=== PATIENT | female | born 2000 | race Caucasian/White ===

== ENCOUNTER 2020-07-29 04:04 | Outpatient (CLI) | payer MEDICAID, SELFPAY ==
--- NOTE | 2020-07-29 14:00 | NS.NUTBLAN_ITS ---
Xiomy was referred for medical nutrition therapy for counseling for anorexia. 67 inches, 121 lbs, BMI 20. Highest weight 5 years ago at 155 lbs as freshman in high school. Started restricting kiana year in high schooll after her friend committed suicide. Has been dx with depression around that time. Current weight has been stable > 6 months. No menses, with nexplanon. Is planning on having blood draw to r/o TSH disorder, check CBC and micronutrient levels. Meds include vyvanse 40 mg, lamictal 150 mg qd. Reports fear of gaining weight, focuses on muscle definition, fear of being self centered, depression, anxiety. She reports being tired most days, having cold feet and hands, difficulty sleeping and developing yanique hair on face. She also reports teeth starting to chip and having diarrhea and stomach aches when she eats. 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 Diet recall indicates restricts during day. Drinks 8 ounces tea and has small dinner. Average caloric intake about 500 calories, 25 g protein, 30 g fat with about 16 ounces fluid. 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 We talked for a long time and discussed the how and why eating disorders develop as a coping mechanism. She reports that her family has addiction issues but that she never drank or smoked. Her drug was restricting in order to reduce emotional pain. Xiomy agreed to start a meal plan that increases caloric intake and fluid intake. Goal for next 2 weeks is for her to eat a protein bar for breakfast, protein shake at lunch a long with a well balanced dinner. Goal is for 5-6 cups of tea or beverages daily. She agrees to take a multivitamin. I did not weigh Xiomy today. follow up visit: 08/14/20 at 12:30 recommend referral for counseling weekly and follow up visit with psychiatrist for medication evaluation.
== END 2020-07-29 04:05 | disposition home or self-care (01) ==
LOC: DS 04:04
PROVIDERS: PCP Nurse Practitioner Family; Visit Provider Dietitian, Registered
DX: F50.82 Avoidant/restrictive food intake disorder (principal); R63.0 Anorexia; Z71.3 Dietary counseling and surveillance
CPT/HCPCS: 97802

== ENCOUNTER 2020-08-12 03:50 | Outpatient (CLI) | payer MEDICAID, SELFPAY ==
--- NOTE | 2020-08-12 12:30 | NS.NUTBLAN_ITS ---
Xiomy returns for Medical Nutrition Therapy for counseling for anorexia/restrictive avoidant eating disorder. Did not weigh Xiomy today, she appears same weight. 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 Xiomy had a hard time making eye contact and it was difficult for her to list what she had eaten in last couple of days. She reports poor sleep. Stated that she started drinking [employer] Instant Breakfast drinks two months ago, and then later said she started with them 2 days ago. Xiomy shared that she has had more digestive issues since our last meeting, reports nausea, stomach cramping, diarrhea on daily basis. Xiomy reports she has not pursued getting a counselor. Continues to take 40 mg vyvance and 150 mg lamictal dailly. Session today focused on importance of following a meal plan and journaling symptoms and feelings. We also discussed importance of doing blood work and following up with PCP. She agreed to drink 2 instant breakfast drinks daily with whole milk and have a typical dinner with family at night. She will start a food/symptom journal. She also agrees to make appt for lab draw and to follow up with her PCP. follow up meeting scheduled for 08/28/20 at 1 pm.
== END 2020-08-12 03:51 | disposition home or self-care (01) ==
LOC: DS 03:50
PROVIDERS: PCP Nurse Practitioner Family; Visit Provider Dietitian, Registered
DX: F50.82 Avoidant/restrictive food intake disorder (principal); R63.0 Anorexia; Z71.3 Dietary counseling and surveillance
CPT/HCPCS: 97803

== ENCOUNTER 2020-08-21 03:29 | Outpatient (CLI) | payer MEDICAID, SELFPAY ==
[2020-08-21 11:09] LABS: HCT 42.5 % (36.0-46.0); HGB 14.2 g/dL (11.2-15.7); MCH 31.3 pg (27.0-33.0); MCHC 33.4 % (32.0-36.0); MCV 93.8 fL (80-95); MPV 9.6 fL (8.0-11.0); Platelet Count 239 10^3/uL (130-400); RBC 4.53 10^6/uL (3.93-5.22); RDW 11.8 % (11.7-14.6); RDW-SD 40.7 fL; WBC 5.69 10^3/uL (4.4-10.8)
[2020-08-21 11:11] LABS: ESR 5 mm//hr (0-20)
[2020-08-21 12:24] LABS: Iron 114 ug/dL (50-170); Total Iron Binding Capacity 326 ug/dL (250-450); Transferrin Sat 35 % (15-50)
[2020-08-21 12:36] LABS: Vitamin D 25 Total 35.2 ng/mL (30-100)
[2020-08-21 12:38] LABS: ALT 24 U/L (14-59); AST 16 U/L (15-37); Albumin 4.2 g/dL (3.4-5.0); Alkaline Phosphatase 60 U/L (46-116); Anion Gap 11.1 mmol/L (3-11); BUN 21 mg/dL (7-18); Bilirubin, Total 0.4 mg/dL (0.2-1.0); CO2 25.9 mmol/L (21.0-32.0); CREATININE 0.9 mg/dL (0.55-1.02); Calcium 9.6 mg/dL (8.5-10.1); Chloride 104 mmol/L (98-107); Glucose 87 mg/dL (74-106); Potassium 4.1 mmol/L (3.5-5.1); Sodium 141 mmol/L (136-145); TSH (W/Ref FT4) 2.51 uIU/mL (0.52-4.13); Total Protein 7.7 g/dL (6.4-8.2); Vitamin B12 877 pg/mL (193-986)
[2020-08-21 12:47] LABS: C-Reactive Protein < 0.05 mg/dL (0.0-0.3)
[2020-08-21 21:05] LABS: Rheumatoid Factor <8.6 IU/mL (<12.0)
[2020-08-22 09:14] LABS: Cyclic Citrullinated Peptide <2.5 U/mL (<5.0)
[2020-08-22 15:00] LABS: ANA Interpretation Negative (Negative)
== END 2020-08-21 03:30 | disposition home or self-care (01) ==
PROVIDERS: PCP Nurse Practitioner Family; Visit Provider Nurse Practitioner Family
DX: N91.2 Amenorrhea, unspecified (principal); R51.9 Headache, unspecified; M25.59 Pain in other specified joint; F41.8 Other specified anxiety disorders; R53.83 Other fatigue; R45.89 Other symptoms and signs involving emotional state; Z79.899 Other long term (current) drug therapy; Z00.00 Encounter for general adult medical examination without abnormal findings
CPT/HCPCS: 36415; 80053; 82306; 85027; 85652; 86200; 82607; 83540; 83550; 84443; 86038; 86140; 86431

== ENCOUNTER 2020-08-28 02:29 | Outpatient (CLI) | payer MEDICAID, SELFPAY ==
--- NOTE | 2020-08-28 13:00 | NS.NUTBLAN_ITS ---
Xiomy returns for medical nutrition therapy for disordered eating, food avoidant with anorexic tendencies. No weight taken today as triggered by scale. Xiomy reports measuring her waist and hips a couple times per week and continues to have body dysmorphia, fear of weight gain, disgust and nausea after eating, She reports pain, bloating after meals, has joint pain, sleeping difficulty, very low energy level. Labs recently drawn and mostly unremarkable. Dx with IBS, anxiety, depression and PTSD. Xiomy brought in her food record today and has been tracking her calories and foods on her phone. Overall, is eating 2149-6294 kcal daily- has incorporated protein shakes daily and MVI and eating 300-500 kcal per meal. [place] on convenience foods evident. Xiomy is fearful that she has been bingeing, however, reassured her that current eating pattern is not considered a binge (tends to be > 1000 kcal per sitting). Encouraged Xiomy to continue to food journal and meet nutrient and fluid needs. At this time, doubtful that lack of calories is cause for fatigue. Xiomy reports following a gluten free diet a couple of years ago- stopped after 60 days. Discussed that celiac dx takes following a strict gluten free diet for > 3 months- usually 6 months. May be prudent to recheck Celiac panel again. Encouraged Xiomy to start with therapy- she will contact [facility] to schedule. She reports she will be more comfortable to talk to a female therapist. Fatigue, pain may be related to her depression. Plan: continue meal planning and meeting nutrient and fluid needs make appt with counselor, consider meeting with psychiatrist At next blood draw- check Celiac panel Referral to platen press feeder may also be helpful. Consider checking for tick born illnesses such as Lymes Dx in view of fatigue, joint pain.
== END 2020-08-28 02:30 | disposition home or self-care (01) ==
LOC: DS 02:29
PROVIDERS: PCP Nurse Practitioner Family; Visit Provider Dietitian, Registered
DX: F50.82 Avoidant/restrictive food intake disorder (principal); R63.0 Anorexia; R53.83 Other fatigue; Z71.3 Dietary counseling and surveillance
CPT/HCPCS: 97803

== ENCOUNTER 2021-04-28 14:31 | Outpatient (CLI) | payer MEDICAID, SELFPAY ==
--- NOTE | 2021-04-28 14:15 | DI.RAD_ITS ---
Exam(s) XR SHOULDER RT COMPLETE 2+V EXAM: XR SHOULDER RT COMPLETE 2+V CLINICAL HISTORY: RIGHT SHOULDER PAIN TECHNIQUE: COMPARISON: CR XR SHOULDER LT COMPLETE 2+V from 04/28/2021 FINDINGS: Two views were obtained. No bony or soft tissue abnormality is seen. IMPRESSION: RADIATION DOSE DELIVERED: Total DLP
--- NOTE | 2021-04-28 14:15 | DI.RAD_ITS ---
Exam(s) XR SHOULDER LT COMPLETE 2+V EXAM: XR SHOULDER LT COMPLETE 2+V CLINICAL HISTORY: LEFT SHOULDER PAIN TECHNIQUE: COMPARISON: No exams were available for comparison FINDINGS: Two views were obtained. No bony or soft tissue abnormality is seen. IMPRESSION: RADIATION DOSE DELIVERED: Total DLP
== END 2021-04-28 14:32 | disposition home or self-care (01) ==
LOC: DIORS 14:31
PROVIDERS: PCP Nurse Practitioner Family; Referring Provider Nurse Practitioner Family; Visit Provider Student in an Organized Health Care Education/Training Program
DX: M25.511 Pain in right shoulder (principal); M25.512 Pain in left shoulder
CPT/HCPCS: 73030

== ENCOUNTER 2021-09-30 02:13 | Outpatient (CLI) | payer MEDICAID, SELFPAY ==
[2021-09-30 10:01] LABS: Iron 135 ug/dL (50-170); Total Iron Binding Capacity 323 ug/dL (250-450); Transferrin Sat 42 % (15-50)
[2021-09-30 10:25] LABS: Anion Gap 7.7 mmol/L (3-11); BUN 17 mg/dL (7-18); CO2 27.3 mmol/L (21.0-32.0); CREATININE 1.1 mg/dL (0.55-1.02); Calcium 8.6 mg/dL (8.5-10.1); Chloride 105 mmol/L (98-107); Ferritin 57 ng/mL (8-252); Glucose 88 mg/dL (74-106); Magnesium 1.7 mg/dL (1.8-2.4); Potassium 3.3 mmol/L (3.5-5.1); Sodium 140 mmol/L (136-145); TSH (W/Ref FT4) 2.41 uIU/mL (0.36-3.74); Vitamin B12 653 pg/mL (193-986)
[2021-09-30 11:17] LABS: Abs Immature Grans 0.02 10^3/uL (0.0-0.06); Absolute Basophil Count 0.05 10^3/uL (0.0-0.2); Absolute Eosinophil Count 0.12 10^3/uL (0.0-0.7); Absolute Lymphocyte Count 3.55 10^3/uL (1.2-3.4); Absolute Neutrophil Count 2.05 10^3/uL (1.2-6.7); Basophils % 0.8; Eosinophils % 1.9; HCT 40.2 % (36.0-46.0); HGB 13.6 g/dL (11.2-15.7); Immature Grans % 0.3; Lymphocytes % 55.6; MCH 31.3 pg (27.0-33.0); MCHC 33.8 % (32.0-36.0); MCV 92 fL (80-95); MPV 10.2 fL (8.0-11.0); Monocytes % 9.4; Platelet Count 217 10^3/uL (130-400); RBC 4.35 10^6/uL (3.93-5.22); RDW 11.8 % (11.7-14.6); RDW-SD 40.1 fL; WBC 6.39 10^3/uL (4.4-10.8)
[2021-09-30 17:36] LABS: Estradiol 40 pg/mL (See Note); Progesterone 0.6 ng/mL (See Table)
[2021-09-30 17:50] LABS: FSH 9.6 mIU/mL (See Note); Prolactin 12.6 ng/mL (See Note)
[2021-10-02 09:40] LABS: DHEA Sulfate 238 ug/dL (134-407)
[2021-10-04 17:16] LABS: Testosterone, Free 0.36 ng/dL (0.06-1.08); Testosterone, Total 24 ng/dL (8-60)
== END 2021-09-30 02:14 | disposition home or self-care (01) ==
LOC: LBO 02:13
PROVIDERS: PCP Nurse Practitioner Family; Visit Provider Nurse Practitioner Family
DX: L68.0 Hirsutism (principal); R00.0 Tachycardia, unspecified; F50.9 Eating disorder, unspecified
CPT/HCPCS: 36415; 80048; 82627; 84402; 84403; 82607; 82670; 82728; 83001; 83002; 83540; 83550; 83735; 84144; 84146; 84443; 85025

== ENCOUNTER 2021-11-02 09:00 | Outpatient (RCR) | payer MEDICAID, SELFPAY ==
--- OUTSIDE RECORDS SUMMARY | 2021-10-30 09:16 | XMS_ITS | Encounter Summary ---
:[address] [facility] Address [address] [place] [address] Care Team Providers Name Role Phone Unknown, Provider Primary Care Provider Encounter Details Date Type Department Care Team Description 09/30/2021 Lab Requisition [facility] Outr Resulting Lab, Pathology & Laboratory Provider [facility] [address], [place] [id number] Social History Tobacco Use Types Packs/Day Years Used Date Never Assessed Sex Assigned at Date Recorded Not on file documented as of this encounter Plan of Treatment Upcoming Encounters Date Type Specialty Care Team Description 11/16/2021 Office Visit Pediatric Genetics [place], [place] [address] [place], [place] [address] (Wo rk) documented as of this encounter Procedures Procedure Name Priority Date/Time Associated Diagnosis Comme nts HOLD SST Today 09/30/2021 8:45 EDT Results for this procedure are i n the results section. PROLACTIN Today 09/30/2021 8:45 EDT Results for this procedure are i n the results section. PROGESTERONE Today 09/30/2021 8:45 EDT Results for this procedure are i n the results section. DHEA SULFATE Today 09/30/2021 8:45 EDT Results for this procedure are i n the results section. ESTRADIOL, ADULTS Today 09/30/2021 8:45 EDT Res ults for this procedure are i n the results section. LH Today 09/30/2021 8:45 EDT Results for this procedure are i n the results section. FSH Today 09/30/2021 8:45 EDT Results for this procedure are i n the results section. documented in this encounter Results HOLD SST (09/30/2021 8:45 EDT) Pathologist Sig nature Hold Hold [facility] LABOR[facility] SERVICES Specimen Blood - Venous blood (substance) Performing Organization Address [facility] Phon e Number [facility] [address] [place] [address] SERVICES LH (09/30/2021 8:45 EDT) Luteinizing Hormone 13.0 See Note [facility] MEDICAL Comment: mIU/mL CENTER LABORATORY NOTE: SERVICES Female Reference Ranges: Pre-Pubertal: ?<6.0 mIU/mL Menstruating: Follicular Phase(-12 to -4 days: ??1.9 - 12.5 mIU/mL Midcycle(-3 to +2 days): ?8.7 - 76.3 mIU/ mL Luteal Phase(+4 to +12 days): ? 0.5 - 16.9 mIU/mL Post Menopausal: 15.9 - 54.0 mIU/mL Specimen Blood - Venous blood (substance) Performing Organization Address [facility] Phon e Number [facility] [address] [place] [address] SERVICES FSH (09/30/2021 8:45 EDT) Pathologist Sig nature FSH 9.6 See Note mIU/mL [facility] [place] SERVICES Specimen Blood - Venous blood (substance) Narrative [facility] SERVICES - 09/30/2021 17:44 EDT NOTE: Female FSH Reference Ranges (>= 13 Menst ruating): PHYSIOLOGICAL STATUS ? REFE RENCE RANGE ? ---- Follicular (-12 to -4 days): ?? 2.5 - 1 0.2 mIU/mL Midcycle (-3 to +2 days): ?3.4 - 33.4 mIU/mL Luteal (+4 to +12 days): ? 1.5 - 9.1 mIU/mL Postmenopausal: ? 23.0 - 116.3 mIU/mL Reference Ranges for female patients <13 years old have not been established. Performing Organization Address [facility] Phon e Number [facility] [address] [place] [address] SERVICES PROLACTIN (09/30/2021 8:45 EDT) Prolactin 12.6 See Note ng/mL [facility] Comment: LABORATORY SERVICES NOTE: Female Reference Ranges: PHYSIOLOGICAL STATUS ?EXPECTED R CHUY ? ---- Postmenopausal ?1.8 - 2 0.3 ng/mL ?9.7 - 208.5 ng/mL Non- ?2.8 - 29.2 ng/mL Reference Ranges for Prolact in in female patients <18 years old have not been established. Specimen Blood - Venous blood (substance) Performing Organization Address [facility] Phon e Number [facility] [address] [place] [address] SERVICES PROGESTERONE (09/30/2021 8:45 EDT) Progesterone 0.6 See Table [facility] Comment: ng/mL LABORATORY Female Reference Ranges: SERVICES PHYSIOLOGICAL STATUS ?EXPECTED RANGE ? >= 18 Yrs Menstruating: (Non-) Follicular Phase: ? <= 1.4 ng/mL Luteal Phase: ? 3.3 - 25.6 ng/mL Mid-luteal Phase: ? 4.4 - 28.0 ng/mL Postmenopausal: ? <= 0.7 ng/mL : -------- First Trimester: ?11.2 - 90.0 ng/mL Second Trimester: ? 25.6 - 89.4 ng/mL Third Trimester: ?48.4 - 422.5ng/mL For ectopic , consult a pathologist Reference Ranges for female patients <18 years o ld have not been established. Specimen Blood - Venous blood (substance) Performing Organization Address [facility] Phon e Number [facility] [address] [place] [address] SERVICES ESTRADIOL, ADULTS (09/30/2021 8:45 EDT) Estradiol 40 See Note pg/mL [facility] Comment: LABORATORY SERVICES NOTE: FEMALE REFERENCE RANGES: MENSTRUATING ? By cycle day relative to LH peak Follicular ?(-12 to -4 days) ??20-144 pg/mL Midcycle ?(-3 to +2 days) ?? 64-357 pg/mL Luteal ?(+4 t0 +12 days) ??56-214 pg/mL POSTMENOPAUSAL ?<32 pg/mL *Cross reactivity with Fulve strant could lead to a falsely elevated estradiol result in patients treated with this drug. Specimen Blood - Venous blood (substance) Performing Organization Address [facility] Phon e Number [facility] [address] [place] [phone] SERVICES DHEA SULFATE (09/30/2021 8:45 EDT) Pathologist Sig nature DHEA Sulfate 238 134 - 407 ug/dL [facility] SERVICES Specimen Blood - Venous blood (substance) Performing Organization Address City/State/ZIP Code Phon e Number [facility] [address] [place] [address] SERVICES documented in this encounter Visit Diagnoses Not on filedocumented in this encounter Care Teams Basket Filler Relationship Specialty Start Date End Date Unknown, Provider, PCP - General 10/02/21 documented as of this encounter
--- OUTSIDE RECORDS SUMMARY | 2021-10-30 09:16 | XMS_ITS | Clinical Summary ---
:2000 Author Organization [facility] Address [address] [place] [address] Care Team Providers Name Role Phone Unknown, Provider Primary Care Provider Encounters Date Type Specialty Care Team Description 09/30/2021 Lab Requisition Clinical Laboratory Outr Resulting Lab , Provider from Last 3 Months Social History Tobacco Use Types Packs/Day Years Used Date Never Assessed Sex Assigned at Date Recorded Not on file Plan of Treatment Upcoming Encounters Date Type Specialty Care Team Description 11/16/2021 Office Visit Pediatric Genetics [place], [place] [address] [place], [place] [address] (Wo rk) Health Maintenance Due Date Last Done Comments Hepatitis C Screen 2000 COVID-19 Vaccine (#1) 04/26/2001 Procedures Procedure Name Priority Date/Time Associated Diagnosis [...] procedure are i n the results section. from Last 3 Months Results HOLD SST (09/30/2021 8:45 EDT) Pathologist Sig nature Hold Hold [facility] LAB[facility]ATOR [facility] SERVICES Specimen Blood - Venous blood (substance) Performing Organization Address [facility]/ZIP Code Phon e Number [facility] [address] [place] [address] SERVICES PROLACTIN (09/30/2021 8:45 EDT) Prolactin 12.6 See Note ng/mL [facility] Comment: LABORATORY SERVICES NOTE: Female Reference Ranges: PHYSIOLOGICAL STATUS ?EXPECTED R CHUY ? ---- Postmenopausal ?1.8 - 2 0.3 ng/mL ?9.7 - 208.5 ng/mL Non- ?2.8 - 29.2 ng/mL Reference Ranges for Prolact in in female patients <18 years old have not been established. Specimen Blood - Venous blood (substance) Performing Organization Address [facility] Phon e Number [facility] [address] [place] [address] SERVICES PROGESTERONE (09/30/2021 8:45 EDT) Progesterone 0.6 See Table [facility] Comment: ng/mL LABORATORY Female Reference Ranges: SERVICES [...] - Venous blood (substance) Performing Organization Address [facility] LABORATORY [address] [place] [address] SERVICES DHEA SULFATE (09/30/2021 8:45 EDT) Pathologist Sig nature DHEA Sulfate 238 134 - 407 ug/dL [facility] SERVICES Specimen Blood - Venous blood (substance) Performing Organization Address [facility] LABORATORY [address] [place] [address] SERVICES ESTRADIOL, ADULTS (09/30/2021 8:45 EDT) Estradiol 40 See Note pg/mL [facility] Comment: LABORATORY SERVICES NOTE: FEMALE REFERENCE RANGES: [...] - Venous blood (substance) Performing Organization Address [facility]/ZIP Code Phon e [facility] LABORATORY [address] [place] [address] SERVICES LH (09/30/2021 8:45 EDT) Luteinizing Hormone 13.0 See Note [facility] MEDICAL Comment: mIU/mL CENTER LABORATORY NOTE: SERVICES Female Reference Ranges: Pre-Pubertal: ?<6.0 mIU/mL Menstruating: Follicular Phase(-12 to -4 days: ??1.9 - 12.5 mIU/mL Midcycle(-3 to +2 days): ?8.7 - 76.3 mIU/ mL Luteal Phase(+4 to +12 days): ? 0.5 - 16.9 mIU/mL Post Menopausal: 15.9 - 54.0 mIU/mL Specimen Blood - Venous blood (substance) Performing Organization Address City/State/ZIP Code Phon e Number [facility] [address] [place] [address] SERVICES FSH (09/30/2021 8:45 EDT) Pathologist Sig nature FSH 9.6 See Note mIU/mL [facility] PARTHAA PAWAN SERVICES Specimen Blood - Venous blood (substance) Narrative [facility] LABOR[facility] SERVICES - 09/30/2021 17:44 EDT NOTE: [...] have not been established. Performing Organization Address City/State/ZIP Code Phon e Number [facility] LAB[facility] [address] [place] [address] SERVICES from Last 3 Months Insurance Payer Benefit Plan / Subscriber ID Effective Phone Address T ype Group Dates [place] [id number] 2021-Pres [address] [place] [id number] Xiomy Fitzgerald Personal/Family Self [address] (Home) [place] [address] Xiomy Fitzgerald Personal/Family Self 2000 [address] (Home) [place] [address] Care Teams Bearing Grinder Relationship Specialty Start Date End Date Unknown, Provider, PCP - General 10/02/21
--- OUTSIDE RECORDS SUMMARY | 2021-10-30 09:16 | XMS_ITS | Clinical Summary ---
:2000 Author Organization [facility] [place] [address] Care Team Providers Name Role Phone Nicole Sam APRN Primary Care Provider [phone] Encounters Date Type Specialty Care Team Description 08/21/2021 Transcribe Orders Primary Care Nicole Sam Beh avior disturbance; GERTRUDE Eating disorder , unspecified type; Mixed anxiety a nd depressive disorder; Posttraumatic s tress disorder from Last 3 Months Social History Tobacco Use Types Packs/Day Years Used Date Never Assessed Sex Assigned at Date Recorded Not on file Plan of Treatment Health Maintenance Due Date Last Done Comments Covid-19 Vaccine (#1) 2005 HPV vaccine (1 - 2-dose series) 10/25/2011 Chlamydia Screening, female 15-25 10/25/2015 HIV screen 2018 Hepatitis C Screening 2018 Tdap adult 10/25/2019 Tetanus vaccine 10/25/2019 PAP Smear 2021 Influenza (Flu) vaccine (1 of 1 - Influenza standard 12/17/2021 series) Insurance Payer Benefit Plan / Subscriber ID Effective Dates Phone Addre ss Type [place] [id number] 2021-Raymundo [phone] [address] [facility] t [address] [place], [place] [id number] Care Teams Principal Engineer Relationship Specialty Start Date End Date Nicole Sam APRN PCP - General Family Medicine 08/20/21 [address] [place] [address]
--- OUTSIDE RECORDS SUMMARY | 2021-10-30 09:16 | XMS_ITS | Encounter Summary ---
:2000 Author Organization [facility] [place] [address] Care Team Providers Name Role Phone Nicole Sam APRN Primary Care Provider [phone] Reason for Referral Psychiatric (Routine) - New Request Specialty Diagnoses / Procedures Referred By Contact Refer red To Contact Psychiatry Diagnoses Behavior disturbance Eating disorder, unspecified type Mixed anxiety and depressive disorder Posttraumatic stress disorder Nicole Sam, Lance Castrejon, PhD [address] PSYCHIATRY DEPT. [place], [place] [id number] [place] [address] [place] [address] Phone: Fax: Referral ID Status Reason Start Expiration Visits Visits Date Date Requested Authorized [id number] New Request Consult, 08/21/2021 08/21/2022 6 6 Test & Treat PCP Updated and/or Approved Encounter Details Date Type Department Care Team Description 08/21/2021 Transcribe Orders eDH Incoming Nicole Sam Behavi or disturbance; Referrals GERTRUDE [place] Eating disorder, unspecified type; [phone] [address] Mixed anxiety and depressive disorder; [place], [place] Posttraumatic s tress disorder [address] Social History Tobacco Use Types Packs/Day Years Used Date Never Assessed Sex Assigned at Date Recorded Not on file documented as of this encounter Plan of Treatment Scheduled Referrals Name Type Priority Associated Order Schedule Diagnoses Referral to Outpatient Routine Behavior Ordered: Neuropsychology Referral disturbance 08/21/2021 Eating disorder, unspecified type Mixed anxiety and depressive disor cristian Posttraumatic stress disorder documented as of this encounter Visit Diagnoses Diagnosis Behavior disturbance Unspecified disturbance of conduct Eating disorder, unspecified type Mixed anxiety and depressive disorder Dysthymic disorder Posttraumatic stress disorder documented in this encounter Care Teams Bevel Mill Operator Relationship Specialty Start Date End Date Nicole Sam APRN PCP - General Family Medicine 08/20/21 [address] [place] [address] documented as of this encounter
--- OUTSIDE RECORDS SUMMARY | 2021-10-30 09:16 | XMS_ITS | Encounter Summary ---
:2000 Author Organization [facility] Address [address] [place] [address] Care Team Providers Name Role Phone Unknown, Provider Primary Care Provider Encounter Details Date Type Department Care Team Description 08/21/2020 Lab Requisition [facility] Outr Resulting Lab, Pathology & Laboratory Provider [facility] [address] [place], [place] [id number] Social History Tobacco Use Types Packs/Day Years Used Date Never Assessed Sex Assigned at Date Recorded Not on file documented as of this encounter Plan of Treatment Upcoming Encounters Date Type Specialty Care Team Description 11/16/2021 Office Visit Pediatric Genetics [place], [place] [address] [place], [place] [address] (Wo rk) documented as of this encounter Procedures Procedure Name Priority Date/Time Associated Comments Diagnosis CCP ANTIBODIES Routine 08/21/2020 10:59 Results f or this EDT procedure are i n the results section. RHEUMATOID FACTOR Routine 08/21/2020 10:59 Result s for this EDT procedure are i n the results section. ANTI NUCLEAR AB Routine 08/21/2020 10:59 Results for this (NEERAJ), IFA EDT procedure are i n the results section. documented in this encounter Results RHEUMATOID FACTOR (08/21/2020 10:59 EDT) Pathologist Sig nature Rheumatoid Factor <8.6 <12.0 IU/mL [facility] SERVICES Specimen Blood - Venous blood (substance) Performing Organization Address City/State/ZIP Code Phon e Number [facility] [address] [place] [address] SERVICES ANTI NUCLEAR AB (NEERAJ), IFA (08/21/2020 10:59 EDT) NEERAJ Interpretation NegativeComment: Negative [facility] No titer LABORATORY SERVICES performed, NEERAJ Screen is negative. Specimen Blood - Venous blood (substance) Narrative [facility] SERVICES - 08/22/2020 14:55 EDT Results were obtained with the [employer] NOV A Lite HEp-2 NEERAJ Kit by indirect immunofluorescence. Performing Organization Address City/State/ZIP Code Phon e Number [facility] [address] [place] [address] SERVICES CCP ANTIBODIES (08/21/2020 10:59 EDT) Pathologist Sig nature CCP Antibodies <2.5 <5.0 U/mL [facility] LABORAT ORY SERVICES Specimen Blood - Venous blood (substance) Performing Organization Address City/State/ZIP Code Phon e Number [facility] [address] [place] [address] SERVICES documented in this encounter Visit Diagnoses Not on filedocumented in this encounter Care Teams Administrative Support Manager Relationship Specialty Start Date End Date Unknown, Provider, PCP - General 10/02/21 documented as of this encounter
--- NOTE | 2021-11-02 09:15 | HOLTER_ITS ---
APPROVED REPORT Conclusion This is a 48-hour Holter monitor reportedly ordered for tachycardia Rhythm throughout was sinus with an average heart rate of 86. Minimum was 58, maximum 135 There were no significant atrial or ventricular dysrhythmias There was no atrial fibrillation, no high-grade AV block, no pauses greater than 3 seconds No patient symptoms were reported
== END 2021-11-15 23:59 | disposition home or self-care (01) ==
LOC: RT 09:00
PROVIDERS: PCP Nurse Practitioner Family; Visit Provider Nurse Practitioner Family
DX: R00.0 Tachycardia, unspecified (principal)
CPT/HCPCS: 93225; 93226

== ENCOUNTER 2022-07-27 02:01 | Outpatient (CLI) | payer MEDICAID, SELFPAY ==
[2022-07-27 08:19] LABS: Abs Immature Grans 0.02 10^3/uL (0.0-0.06); Absolute Basophil Count 0.05 10^3/uL (0.0-0.2); Absolute Eosinophil Count 0.08 10^3/uL (0.0-0.7); Absolute Lymphocyte Count 3.13 10^3/uL (1.2-3.4); Absolute Monocyte Count 0.81 10^3/uL (0.1-0.8); Basophils % 0.6; HCT 41.5 % (36.0-46.0); Immature Grans % 0.3; Lymphocytes % 40.2; MCH 31.2 pg (27.0-33.0); MCHC 33.7 % (32.0-36.0); MCV 92 fL (80-95); MPV 9.5 fL (8.0-11.0); Monocytes % 10.4; Neutrophils % 47.5; Platelet Count 229 10^3/uL (130-400); RBC 4.49 10^6/uL (3.93-5.22); RDW-SD 44.2 fL; WBC 7.79 10^3/uL (4.4-10.8)
[2022-07-27 09:12] LABS: ALT 29 U/L (14-59); AST 14 U/L (15-37); Alkaline Phosphatase 55 U/L (46-116); Anion Gap 7.7 mmol/L (3-11); BUN 12 mg/dL (7-18); Bilirubin, Total 0.3 mg/dL (0.2-1.0); CO2 26.3 mmol/L (21.0-32.0); CREATININE 0.8 mg/dL (0.55-1.02); Calcium 8.8 mg/dL (8.5-10.1); Chloride 103 mmol/L (98-107); Estimated GFR 107.44 (mL/min/1.73m2); Ferritin 38 ng/mL (8-252); Glucose 99 mg/dL (74-106); Potassium 3.3 mmol/L (3.5-5.1); Sodium 137 mmol/L (136-145); TSH (W/Ref FT4) 1.51 uIU/mL (0.36-3.74); Total Protein 7.8 g/dL (6.4-8.2); Vitamin B12 750 pg/mL (193-986)
[2022-07-27 09:29] LABS: Iron 74 ug/dL (50-170); Total Iron Binding Capacity 298 ug/dL (250-450); Transferrin Sat 25 % (15-50)
[2022-07-27 09:52] LABS: Vitamin D 25 Total 41.7 ng/mL (30-100)
== END 2022-07-27 02:02 | disposition home or self-care (01) ==
LOC: LBO 02:01
PROVIDERS: PCP Nurse Practitioner Family; Visit Provider Nurse Practitioner Family
DX: R11.0 Nausea (principal); R94.4 Abnormal results of kidney function studies; L68.0 Hirsutism; R00.0 Tachycardia, unspecified; R51.9 Headache, unspecified; R53.83 Other fatigue; F41.9 Anxiety disorder, unspecified; F32.A Depression, unspecified
CPT/HCPCS: 36415; 80053; 82306; 82607; 82728; 83540; 83550; 83735; 84443; 85025

== ENCOUNTER 2022-09-16 09:09 | Outpatient (CLI) | payer MEDICAID, SELFPAY ==
--- NOTE | 2022-09-16 09:00 | DI.RAD_ITS ---
Exam(s) XR KNEE LT 4V AP,LAT,ROSHNI,PAT EXAM: XR KNEE LT 4V AP,LAT,ROSHNI,PAT CLINICAL HISTORY: knee pain. TECHNIQUE: 2D digital imaging was performed. COMPARISON: No exams were available for comparison FINDINGS: Four views No evidence of fracture nor joint effusion.h. No joint space narrowing. Bone density normal. No os seous lesions. IMPRESSION: No significant radiograph findings in the knee. DATA REPOSITORY: RADIATION DOSE DELIVERED:
--- NOTE | 2022-09-16 09:00 | DI.RAD_ITS ---
Exam(s) XR KNEE RT 4V AP,LAT,ROSHNI,PAT EXAM: XR KNEE RT 4V AP,LAT,ROSHNI,PAT CLINICAL HISTORY: knee pain. TECHNIQUE: 2D digital imaging was performed. COMPARISON: CR XR KNEE LT 4V AP,LAT,ROSHNI,PAT from 09/16/2022 FINDINGS: Four views No evidence fracture nor obvious joint effusion. No degenerative changes. No joint space narrowing. No osseous lesions. Bone density normal. IMPRESSION: No significant radiographic findings in the right knee. DATA REPOSITORY: RADIATION DOSE DELIVERED:
== END 2022-09-16 09:10 | disposition home or self-care (01) ==
LOC: DIORS 09:09
PROVIDERS: PCP Nurse Practitioner Family; Referring Provider Nurse Practitioner Family; Visit Provider Physician Assistant
DX: M25.562 Pain in left knee (principal)
CPT/HCPCS: 73564

== ENCOUNTER 2023-07-11 05:04 | Outpatient (CLI) | payer MEDICAID, SELFPAY ==
[2023-07-11 10:14] LABS: HCT 42.1 % (36.0-46.0); HGB 13.8 g/dL (11.2-15.7); MCH 30.5 pg (27.0-33.0); MCHC 32.8 % (32.0-36.0); MCV 93 fL (80-95); MPV 10.2 fL (8.0-11.0); Platelet Count 212 10^3/uL (130-400); RBC 4.52 10^6/uL (3.93-5.22); RDW 12.4 % (11.7-14.6); WBC 4.73 10^3/uL (4.4-10.8)
== END 2023-07-11 05:05 | disposition home or self-care (01) ==
LOC: LBO 05:04
PROVIDERS: PCP Nurse Practitioner Family; Visit Provider Obstetrics & Gynecology
DX: Z01.818 Encounter for other preprocedural examination (principal); F41.1 Generalized anxiety disorder
CPT/HCPCS: 36415; 85027; 86850; 86900; 86901

== ENCOUNTER 2023-07-13 06:15 | Day surgery (SDC) | payer MEDICAID, SELFPAY ==
[2023-07-13] VITALS (10 sets, daily range): BP systolic 101–132; BP diastolic 51–81; PULSE 75–102; RESP 15–20; TEMP 36.2–37.1; O2SAT 99–100; BMI 21.0
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
[2023-07-13] MEDS: Lactated Ringers 1,000 ML 125 ML IV (07:40)
[2023-07-13] MEDS: Bupivacaine 0.25% Pres-Free 30 ML VIAL (08:20)
--- NOTE | 2023-07-13 08:24 | FALL_PTH ---
PATIENT: Xiomy Fitzgerald LOC: [facility] U#:[id number] AGE/SX: 22/F ROOM: RE07/13/[address]: Carla Esposito MD : 2000 BED: DIS: 07/13/2023 SPEC #: [id number] RECD: 07/14/23 11:55 STATUS: SVETLANA RECatia #: [id number] MURTAZA: 07/13/23 08:[address]: Carla Esposito DEPT: Surgical Specimen RECD BY: Jacquelin Pulido ENTERED: 07/14/23 11:58 SP TYPE: Fall OTHR DR: Nicole Sam Tissues: 1 - FALLOPIAN TUBE (STERILIZATION) 2 - FALLOPIAN TUBE (STERILIZATION) Procedures: GROSS AND MICRO LEVEL 2 Comments: [id number]
--- NOTE | 2023-07-13 08:45 | PAPFT_PTH ---
PATIENT: Xiomy Fitzgerald LOC: [facility] U#:[id number] AGE/SX: 22/F ROOM: RE07/13/[address]: Carla Esposito MD : 2000 BED: DIS: 07/13/2023 SPEC #: [id number] RECD: 07/14/23 13:07 STATUS: SVETLANA RECatia #: [id number] MURTAZA: 07/13/23 08:[address]: Carla Esposito DEPT: [facility] Cytology RECD BY: Jacquelin Pulido ENTERED: 07/14/23 13:07 SP TYPE: PAPFT OTHR DR: Nicole Sam Tissues: 1 - CX/ENDOCX FOR PAP SMEARS Procedures: PAP THIN PREP/UVM Screening HPV DNA PROBE Comments: [id number]
--- NOTE | 2023-07-13 08:54 | ROE_ITS ---
Date of service: 07/13/23 Time of Service: 08:54 Operative Note Operative Note DATE OF PROCEDURE: 07/13/23 PRE-OP DIAGNOSIS: Desires permanent sterilization POST-OP DIAGNOSIS: same PROCEDURE: Laparoscopic bilateral salpingectomy SURGEON: Carla Esposito ASSISTING SURGEON: Pita Farfan Refer to Anesthesia Record ESTIMATED BLOOD LOSS: 20 COMPLICATIONS: None Patient was transported to: PACU Patient's condition: stable Indications: Pt desires permanent sterilization. Findings: Normal appearing uterus, ovaries and tubes Procedure Description: After informed consent was signed the patient was taken to the operating room and given general anesthesia.? SCDs were placed on her legs.? She was prepped and draped in the dorsal lithotomy position in the [facility].? Her bladder was drained of urine via a straight catheter. A speculum was placed into the vagina to expose the cervix and a hulka manipulator was placed into the cervix. The speculum was removed. Gloves were changed and attention was turned to the abdomen. The infraumbilical fold was grasped and injected with 0.25% marcaine with epinephrine. A 5mm incision was made in the infraumbilical fold with the scalpel. A hemostat was used to bluntly dissect the subcuticular layers. The fascia was grasped with pawan clamps and incised. The incision was extended with blunt pressure. The peritoneum was grasped and incised with metzembaum scissors. The visiport was used to enter the abdomen under direct visualization. Once entrance to the abdominal cavity was confirmed the CO2 was turned on and the abdomen was insufflated. Two lateral 5mm ports were then placed under direct visualization. The left tube was identified and followed to the fimbriated end. The tube was grasped and elevated and the mesosalpinx was clamped, cauterized and cut with the ligasure device. The was continued along the length of the tube. The proximal end of the tube was then transected with the ligasure. Good hemostasis was noted. The right tube was then identified and followed to the fimbriated end. The tube was grasped and elevated and the mesosalpinx was clamped, cauterized and cut with the ligasure device. The was continued along the length of the tube. The proximal end of the tube was then transected with the ligasure. Good hemostasis was noted on both sides. The tubes were removed individually through the ports and noted to be intact. The ports were removed. The gas was released from the abdomen. The fascia of the umbilical incision was identified and closed with a [id number] suture of 0 vicryl. The skin incisions were then closed with 4-0 vicryl. Mastisol and steristrips were placed. The manipulator was removed. The speculum was placed back into the vagina to expose the cervix and a pap smear was collected. The patient was placed back into the supine position.? She was moved to the stretcher and taken to the recovery room in stable condition.
--- NOTE | 2023-07-13 09:09 | W.PM.DSUDISC ---
Date of service: 07/13/23 Time of Service: 09:09 Discharge Plan Disposition Patient Disposition: Home Condition: Good Discharge Details Attending Provider: Carla Esposito Primary Care Provider: Nicole Sam Home Meds and New Rx's Prescriptions: No Action omega 3-tcd-zza-fish oil [Fish Oil] 300-1,000 mg capsule 1 cap PO DAILY Patient Comments: 12/17/21- pt unsure of dose vitamin B complex Tablet 1 tab PO DAILY cholecalciferol (vitamin D3) 50 mcg (2,000 unit) capsule 50 mcg PO DAILY loratadine [Claritin] 10 mg tablet 10 mg PO DAILY fluticasone propionate [Flonase Allergy Relief] 50 mcg/actuation spray,suspension 1 spray intranasal Q12H Rx Instructions: administer into each nostril multivitamin Tablet 1 tab PO DAILY Nexplanon 68 mg implant 1 implant subdermal ONCE Patient Comments: 07/11/23- pt reports left arm Rx Instructions: as a single dose ibuprofen 800 mg tablet 800 mg PO Q8H PRN Vyvanse 60 mg capsule 60 mg PO DAILY lamotrigine [Lamictal] 25 mg tablet 100 mg PO DAILY Patient Comments: 12/17/21- Pt reports taking 300 mg daily in one combined dose. lamotrigine [Lamictal] 200 mg tablet 200 mg PO DAILY Patient Comments: 12/17/21- pt takes with 100 mg for 300 mg daily in one combined dose (just increased from 275 mg) Discharge Instructions Stand Alone Forms: Anesthesia Discharge Inst., DSU Post Wood Lathe Operator SurgeryW/Incision, Press Ganey (DSU) Activity:: No lifting >20lbs Remove Dressings/Wound Care:: 24 hours Shower/Bathe:: 24 hours Diet:: As Tolerated Discharge Orders Discharge Orders: Discharge Order (Routine); Ordered 07/13/23 Ordered By: Carla Esposito
[2023-07-13] MEDS: fentaNYL 100 MCG/2 ML VIAL IVP ×2 (09:30→09:43)
--- NOTE | 2023-07-13 10:07 | W.ANESPOSTOP ---
Postoperative Evaluation Date, Time and Location Date Performed: 07/13/23 Time Performed: 10:07 Patient Location: Day Surgery Unit Vital Signs Most Recent Imported Vital Signs: Most Recent Vital Signs Temp Pulse Resp BP Pulse Ox 36.5 C 77 20 103/72 100 07/13/23 09:53 07/13/23 09:53 07/13/23 09:53 07/13/23 09:53 07/13/23 09:53 Pain Score Most Recent Pain Score: Most Recent Pain Score Pain Level 3 07/13/23 09:53 Assessment Mental Status: Awake (Alert & Oriented to Patient Baseline) Airway and Respiratory Function: Patent airway with normal (patient baseline) respiratory exam Cardiovascular Function: Hemodynamically Stable Hydration Status: Adequately Hydrated Nausea & Vomiting: No Nausea or Vomiting Pain: Pain is tolerable per patient Peripheral Nerve Block: Patient did not receive a nerve block
== END 2023-07-13 11:00 | disposition home or self-care (01) ==
PROVIDERS: PCP Nurse Practitioner Family; Visit Provider Obstetrics & Gynecology
PROC: (CPT 58661; principal; 2023-07-13 07:30)
DX: Z30.2 Encounter for sterilization (principal)
CPT/HCPCS: 58661; 81025; 88142; 87624; 88302; J0131; J0665; J1100; J1805; J1885; J2001; J2250; J2405; J2704; J3010

== ENCOUNTER 2024-05-10 17:41 | Outpatient (REF) | payer MEDICAID, SELFPAY ==
[2024-05-10 16:29] LABS: Anion Gap 7.9 mmol/L (3-11); BUN 12 mg/dL (7-18); CO2 27.1 mmol/L (21.0-32.0); CREATININE 0.8 mg/dL (0.55-1.02); Calcium 9.5 mg/dL (8.5-10.1); Chloride 104 mmol/L (98-107); Estimated GFR 106.11 (mL/min/1.73m2); Glucose 82 mg/dL (74-106); Potassium 3.8 mmol/L (3.5-5.1); Sodium 139 mmol/L (136-145)
== END 2024-05-10 17:42 | disposition home or self-care (01) ==
LOC: NCHCN 17:41
PROVIDERS: PCP Nurse Practitioner Family; Visit Provider Nurse Practitioner Family
DX: L68.0 Hirsutism (principal)
CPT/HCPCS: 80048

== ENCOUNTER 2024-05-28 17:23 | Outpatient (REF) | payer MEDICAID, SELFPAY ==
[2024-05-28 15:05] LABS: Anion Gap 8.9 mmol/L (3-11); BUN 17 mg/dL (7-18); CO2 27.1 mmol/L (21.0-32.0); CREATININE 0.8 mg/dL (0.55-1.02); Calcium 9.4 mg/dL (8.5-10.1); Chloride 103 mmol/L (98-107); Estimated GFR 106.11 (mL/min/1.73m2); Glucose 81 mg/dL (74-106); Potassium 4.5 mmol/L (3.5-5.1); Sodium 139 mmol/L (136-145)
== END 2024-05-28 17:24 | disposition home or self-care (01) ==
LOC: NCHCN 17:23
PROVIDERS: PCP Nurse Practitioner Family; Visit Provider Nurse Practitioner Family
DX: L68.0 Hirsutism (principal)
CPT/HCPCS: 80048

== ENCOUNTER 2024-12-18 14:42 | Outpatient (REF) | payer MEDICAID, SELFPAY ==
[2024-12-18 16:29] LABS: Anion Gap 13.3 mmol/L (3-11); BUN 12 mg/dL (7-18); CO2 23.7 mmol/L (21.0-32.0); Calcium 9.2 mg/dL (8.5-10.1); Chloride 103 mmol/L (98-107); Estimated GFR 123.78 (mL/min/1.73m2); Glucose 91 mg/dL (74-106); Potassium 3.6 mmol/L (3.5-5.1); Sodium 140 mmol/L (136-145)
[2024-12-19 11:17] LABS: Ro60 Ab, IgG <7.0 CU (<20.0); SS-A/Ro, IgG <2.3 CU (<20.0); SS-B (La) Ab, IgG <3.3 CU (<20.0)
== END 2024-12-18 14:43 | disposition home or self-care (01) ==
LOC: NCHCN 14:42
PROVIDERS: PCP Nurse Practitioner Family; Visit Provider Nurse Practitioner Family
DX: H04.123 Dry eye syndrome of bilateral lacrimal glands (principal); L68.0 Hirsutism
CPT/HCPCS: 80048; 86235

== ENCOUNTER 2025-02-26 11:13 | Outpatient (REF) | payer MEDICAID, SELFPAY ==
[2025-02-26 14:10] LABS: Abs Immature Grans 0.01 10^3/uL (0.0-0.06); HCT 39.8 % (36.0-46.0); HGB 13.2 g/dL (11.2-15.7); Immature Grans % 0.2 %; MCH 30.3 pg (27.0-33.0); MCHC 33.2 % (32.0-36.0); MCV 91 fL (80-95); MPV 10.4 fL (8.0-11.0); Platelet Count 227 10^3/uL (130-400); RBC 4.36 10^6/uL (3.93-5.22); RDW 12.4 % (11.7-14.6); RDW-SD 41.7 fL; WBC 4.91 10^3/uL (4.4-10.8)
[2025-02-26 14:38] LABS: Vitamin D 25 Total 47 ng/mL (30-100)
[2025-02-26 14:39] LABS: Ferritin 31 ng/mL (7-271); TSH 1.09 uIU/mL (0.55-4.78)
[2025-02-26 15:13] LABS: Anion Gap 6.3 mmol/L (3-11); BUN 9 mg/dL (9-23); CO2 24.7 mmol/L (20.0-31.0); Calcium 9.4 mg/dL (8.3-10.6); Chloride 109 mmol/L (98-107); Glucose 89 mg/dL (74-106); Potassium 3.7 mmol/L (3.5-5.1); Sodium 140 mmol/L (136-145)
== END 2025-02-26 11:14 | disposition home or self-care (01) ==
LOC: NCHCN 11:13
PROVIDERS: Nurse Practitioner Family; PCP Nurse Practitioner Family; Visit Provider Nurse Practitioner Family
DX: L68.0 Hirsutism (principal)
CPT/HCPCS: 80048; 82306; 82728; 84439; 84443; 85025